=== PATIENT | male | born 1935 | race African-American/Black ===

== ENCOUNTER 2016-06-06 15:27 | Inpatient (IN) ==
[2016-06-06] MEDS ORDERED: PANTOPRAZOLE 40 MG VIAL IV STA (17:10)
[2016-06-06] MEDS ORDERED: SODIUM CHLORIDE 0.9% 500 ML IV STA (17:10)
[2016-06-06] MEDS ORDERED: ONDANSETRON 4 MG/2 ML VIAL IV STA (17:10)
--- NOTE | 2016-06-06 17:21 | Emergency Department Note ---
Aletha Ware [place], am scribing for, and in the presence of, Edd Clarke MD 17:21. Tricia Ware Charles R, MD, personally performed the services described in this documentation, ascribed by Geri Pompa in my presence, and it is both accurate and complete [id number] . Arrival - Arrival Chief Complaint: Non-Specific Stated Complaint: sent for blood tranfusion ED Nursing Triage Note: Pt sent from [facility] for low blood count. 6&21 H&H. Pt states he has been getting tired alot lately. Mode of Arrival: Ambulatory Limitations: No Limitations Source: Patient Time Seen by Provider: 06/06/16 16:30 - History of Present Illness HPI Narrative: This is a 80 y/o black male presenting to the ED from the [facility] for low blood count and Hematocrit and Hemoglobin levels of 6 and 21. Pt states he has been experiencing melena stool 3-4 weeks ago but has not experienced them recently. He states he takes Xarelto. Pt denies SOB, weakness, LAU, vision change , hematuria, abdominal pain, back pain. He had a scope done and revealed polyps which were removed. His PMHx is consistent with HTN and PVD. Consistency: constant Severity: moderate Allergies/Adverse Reactions: Allergies Allergy/AdvReac Type Severity Reaction Status Date / Time codeine Allergy UNRESPONSIV Verified 06/06/16 15:38 E Home Medications: Home Medications Medication Instructions Recorded Confirmed Type Unable To Obtain [Unable to Obtain] 06/06/16 06/06/16 History Review of System - Review of System 12 point system: reviewed and no additional remarkable complaints except as stated - Review of System Constitutional: Present: weakness (generalized ). Absent: chills, fever Eyes: Absent: vision change Head/Ears/Nose/Throat: Absent: nasal drainage Respiratory: Absent: cough, wheezing Cardiovascular: Absent: chest pain, dyspnea on exertion Gastrointestinal: Present: melena (3-4 weeks ago ). Absent: abdominal pain, nausea, vomiting, diarrhea Genitourinary male: Absent: dysuria Musculoskeletal: Absent: arm pain, back pain, leg pain, neck pain Skin: Absent: rash Neurological: Absent: headache, weakness, confusion, abnormal gait, vertigo Psychiatric: Absent: anxiety Endocrine: Absent: fatigue Hematological/Lymphatic: Absent: easy bleeding Allergic/Immunologic: Absent: facial swelling Medical,Surgical,& Family Hx - Medical History Cardio: History of: Hypertension, PVD - Social History Smoking Status: Former smoker Exam Vital Signs: Vital Signs Temperature 98.7 F 06/06/16 16:47 Pulse Rate 57 L 06/06/16 16:47 Respiratory Rate 18 06/06/16 16:48 Blood Pressure 143/59 06/06/16 16:47 O2 Sat by Pulse Oximetry 98 06/06/16 15:33 - General General appearance: alert, in no apparent distress - Head Head exam: Present: atraumatic, normocephalic - Eye Eye exam: Present: normal appearance, PERRL, EOMI - ENT ENT exam: Present: normal exam, normal oropharynx, mucous membranes moist, TM's normal bilaterally, normal external ear exam - Neck Neck exam: Present: normal inspection, full ROM, trachea midline. Absent: tenderness - Chest Chest inspection: Present: normal inspection, symmetric chest wall rise. Absent : tenderness - Respiratory Respiratory exam: Present: normal lung sounds bilaterally - Cardiovascular Cardiovascular exam: Present: regular rate, normal rhythm, normal heart sounds - Abdominal Exam Abdominal exam: Present: soft, normal bowel sounds. Absent: distention, tenderness, guarding - Rectal Exam Rectal exam: Present: heme (+) stool (faint ). Absent: normal inspection - Extremities Exam Extremities exam: Present: normal inspection, full ROM, normal capillary refill. Absent: tenderness, pedal edema, calf tenderness - Back Exam Back exam: Present: normal inspection, full ROM. Absent: tenderness - Neurological Exam Neurological exam: Present: alert, oriented X3, CN II-XII intact, normal gait, reflexes normal - Psychiatric Psychiatric exam: Present: normal affect, normal mood - Skin Skin exam: Present: warm, dry, intact, normal color. Absent: rash, diaphoresis Course - Consultations Consultation #1: Hospitalist will admit patient Time: 17:22 Disposition Clinical Impression: GI bleed, Acute blood loss anemia, History of DVT (deep vein thrombosis), Chronic anticoagulation Case discussed with: patient Disposition: Still a Patient Condition: Stable Time of Disposition: 17:25
[2016-06-06 17:41] LABS: Basophils % 0.3 % (0.0-0.8); Eosinophils # 0.1 10*3/uL (0.0-0.87); Hemoglobin 6.6 GM/DL (14.0-18.0); Immature Granulocytes % 0.3 %; Immature Granulocytes Absolute 0.01 #; Lymphocytes # 1.2 10*3/uL (1.4-4.0); Lymphocytes % 32.9 % (21.2-54.2); Mean Corpuscular Hemoglobin 25 PG (27-34); Mean Corpuscular Volume 83.7 FL (87-102); Mean Platelet Volume 10.7 FL (9.6-12.0); Monocytes # 0.5 10*3/uL (0.11-0.8); Neutrophils # 1.8 10*3/uL (1.4-7.4); Neutrophils % 49.5 % (38.7-73.9); Platelet Count 205 T/CUMM (130-400); Red Blood Count 2.63 MC/CUMM (3.8-5.5); Red Cell Distribution Width 17.2 % (9.3-17.3); White Blood Count 3.5 T/CUMM (4-12)
[2016-06-06] MEDS ORDERED: ONDANSETRON 4 MG/2 ML VIAL IV PRN (17:42)
[2016-06-06] MEDS ORDERED: ACETAMINOPHEN 325 MG TABLET PO PRN (17:42)
[2016-06-06] MEDS ORDERED: ZALEPLON 5 MG CAPSULE PO PRN (17:42)
[2016-06-06] MEDS ORDERED: SODIUM CHLORIDE 0.9% 250 ML IV PRN (17:47)
[2016-06-06 17:49] LABS: INR 1.2; PT Patient Result 13.1 SECS
--- NOTE | 2016-06-06 18:05 | XRay Report ---
XR abdomen complete w decub Indication: Abdominal pain. Abdomen 3 views: No small bowel dilatation. Increased stool and gas projects over the colon, without dilatation. No evidence of free air. No abnormal calcifications or masses. Impression: Constipation without obstruction. PROCEDURE INTERPRETED AT [facility] DEPARTMENT OF RADIOLOGY Final Report Signed by: Jose Navas M.D.
--- NOTE | 2016-06-06 18:06 | XRay Report ---
XR chest 1V portable Indication: Shortness of breath. Chest one view: The heart size and mediastinal contour are normal. The lungs and pleural spaces are clear. Bones are unremarkable. Impression: Negative chest. PROCEDURE INTERPRETED AT [facility] DEPARTMENT OF RADIOLOGY Final Report Signed by: Jose Navas M.D.
--- NOTE | 2016-06-06 18:14 | Hospitalist History & Physical ---
<Horacio Qiu - Last Filed: 06/06/16 18:06> Assessment and Plan - Time spent with patient Time spent with patient: Greater than 30 minutes (1) GI bleed Status: Acute Assessment and plan: Patient reports history of melena. There is a distinct smell of blood present in the room. Patient denies active bleeding. Will consult GI for possible EGD and C scope. Current Visit: Yes (2) Acute blood loss anemia Status: Acute Assessment and plan: H&H 6.6 and 22. Type and screen. Plan to transfuse 2 units packed red blood cells. Repeat CBC, posttransfusion H&H. Current Visit: Yes (3) Hypertension Status: Acute Assessment and plan: Well controlled, will continue home meds. Current Visit: Yes (4) History of DVT (deep vein thrombosis) Status: Acute Assessment and plan: Patient reports DVT diagnosed in August 2015. He has been on chronic anticoagulation with Xarelto. Hold anticoagulation for now. Current Visit: Yes (5) Chronic anticoagulation Status: Acute Current Visit: Yes History of Present Illness Chief complaint: Low H&H History of present illness: Mr. Mcknight is a 80 year old male with a past medical history significant for hypertension and DVT who presented to the ED today for further evaluation low blood count and H&H. Patient states that he went to his PCP at [facility] to have lab work drawn yesterday and was told to report back to the office today because his blood count was dangerously low. To lab at the PCPs office found his H&H to be 6 and 21, and the patient was instructed to report to the emergency room. On arrival, the patient is alert and in no acute distress. He denies any weakness, blurred vision, hemoptysis, hematemesis, melena, abdominal pain, pain with food intake. However, he does admit to noticing 2-3 dark tarry stools approximately 3-4 weeks ago. He also states that 4 days ago, while doing yard work, he began to feel fatigued. Otherwise, he reports no change in his health. Lab work in the ER reveals hemoglobin 6.7 and hematocrit of 22 WBC 3.5 RBC 2.63. The patient's legs are moderately edematous, more so in the right. This is suspicious for lymphadenopathy. He does take naproxen 500 daily and Xarelto every evening. He will be admitted to the [facility] medicine service for further evaluation and management. We will consult GI for workup and further recommendations. Home Medications Medication Instructions Recorded Confirmed Type Amlodipine Besylate 5 mg PO QAM 06/06/16 06/06/16 History Atorvastatin Calcium 80 mg PO QPM 06/06/16 06/06/16 History Carboxymethylcellulose Sodium 1 drop BOTH EYES Q2H PRN 06/06/16 06/06/16 History [Refresh Tears] Dorzolamide HCl [Dorzolamide 2% 1 drop BOTH EYES TID 06/06/16 06/06/16 History Oph Soln] Folic Acid Tab 1 mg PO QAM 06/06/16 06/06/16 History Fosinopril Sodium 10 mg PO QPM 06/06/16 06/06/16 History Meloxicam 15 mg PO QAM 06/06/16 06/06/16 History Methotrexate Tab 17.5 mg PO TH 06/06/16 06/06/16 History Niacin [Slo-Niacin] 250 mg PO QPM 06/06/16 06/06/16 History Omeprazole 20 mg PO QAM 06/06/16 06/06/16 History Oxybutynin Chloride 5 mg PO BID 06/06/16 06/06/16 History Rivaroxaban [Xarelto] 20 mg PO DAILY W/SUPPER 06/06/16 06/06/16 History Allergies Allergy/AdvReac Type Severity Reaction Status Date / Time codeine Allergy UNRESPONSIV Verified 06/06/16 15:38 E Medical,Surgical,& Family Hx - Medical History Cardio: History of: Hypertension, PVD - Surgical History Orthopedic Surgeries: Surgical HX of;: Orthopedic Surgery (Shaved right patella) - Social History Smoking Status: Former smoker Frequency of Alcohol Use: Frequently (Wine and cognac) Type of Drug Use: None Marital Status: Single Lives With:: Parent (Patient is his mother's primary caregiver) Functional capacity: independent ambulation - Constitutional Constitutional: Absent: chills, daytime sleepiness, fatigue, fever(s), headache( s), weakness - EENT Eyes: Absent: blurry vision, loss of vision Ears: Absent: decreased hearing, ear pain Nose, mouth and throat: Absent: headache(s), neck pain, sore throat - Cardiovascular Cardiovascular: Present: edema. Absent: chest pain at rest, claudication, dyspnea, radiating jaw, neck or arm pain, orthopnea, palpitations - Respiratory Respiratory: Absent: cough, dyspnea, hemoptysis, dyspnea on exertion, wheezing, snoring - Gastrointestinal Gastrointestinal: Present: change in bowel habits, melena. Absent: abdominal pain, coffee ground emesis, constipation, hematemesis, hematochezia, loose stools, nausea - Genitourinary Genitourinary: Absent: difficulty urinating, dysuria - Musculoskeletal Musculoskeletal: Absent: arthralgias, back pain - Neurological Neurological: Absent: abnormal gait, abnormal speech, confusion, dizziness, headache(s), numbness, syncope - Psychiatric Psychiatric: Absent: anxiety, depression - Endocrine Endocrine: Absent: cold intolerance, fatigue, heat intolerance - Hematologic/Lymphatic Hematologic/Lymphatic: Absent: easy bleeding, easy bruising Exam - Constitutional Vitals: Period Temp Pulse Resp BP Sys/Walker Pulse Ox Last 24 Hr 98.7 F-98.9 F 57-57 18-18 143-143/59-59 98 Exam: General appearance: normal weight, no acute distress - Head Head exam: Present: normocephalic, atraumatic - Eye Eye exam: Present: EOMI. Absent: conjunctival injection, nystagmus Pupils: Present: AHSAN, normal accommodation - ENT ENT exam: Present: normal exam, normal external ear exam - Neck Neck exam: Present: normal inspection. Absent: lymphadenopathy, tenderness, thyromegaly - Respiratory Respiratory exam: Present: clear to auscultation bilaterally. Absent: rales, rhonchi, wheezes - Cardiovascular Cardiovascular exam: Present: regular rate and rhythm. Absent: carotid bruit, gallop, rubs - GI/Abdominal GI/Abdominal exam: Present: normal bowel sounds. Absent: ascites, distended, mass - Extremities Exam Extremities exam: Present: normal inspection, normal capillary refill, edema in lower extremities bilaterally - Back Exam Back exam: Absent: CVA tenderness (L), CVA tenderness (R) - Neurological Exam Neurological exam: Present: alert, oriented X3 - Psychiatric Psychiatric exam: Present: normal affect, normal mood - Skin Skin exam: Present: normal color, warm, dry Results - Labs CBC & BMP: 06/06/16 17:19 Lab Results: I have reviewed the past 24 hour labs <Marie Matos - Last Filed: 06/06/16 19:53> Assessment and Plan (1) Acute blood loss anemia Status: Acute Assessment and plan: consult Dr Lynn, protonix 40 mg IV every 12 hours, Hold Current Visit: Yes (2) Chronic anticoagulation Status: Acute Assessment and plan: for dvt, hold xarelto Current Visit: Yes (3) History of DVT (deep vein thrombosis) Status: Acute Current Visit: Yes (4) Hypertension Status: Acute Current Visit: Yes History of Present Illness History of present illness: Mr. MCKNIGHT is a 80 year old male seen and examined. History and physical reviewed and edited. Medical,Surgical,& Family Hx - Family History Family History: Denies;: Family Diabetes, Family Heart Disease Exam - Constitutional Exam: extremities chronic lymphedema left worse than right Results - Labs CBC & BMP: 06/06/16 17:19 06/06/16 17:19 - Diagnostic Findings Procedure: Abdominal x-ray: report reviewed by me (constipation without obstruction ), Chest x-ray: report reviewed by me (negative )
[2016-06-06 18:22] LABS: Alanine Aminotransferase 21 U/L (16-61); Albumin 3.2 G/DL (3.4-5.0); Alkaline Phosphatase 71 U/L (45-117); Aspartate Amino Transferase 21 U/L (0-37); Bilirubin,Total < 0.39 MG/DL (0.2-1.0); Blood Urea Nitrogen 23 MG/DL (7-18); Calcium 8.5 MG/DL (8.5-10.1); Glucose 221 MG/DL (74-106); Magnesium 1.8 MG/DL (1.8-2.4); Osmolality,Calculated 293.1 MOS/KG (273-304); Potassium 4.4 MMOL/L (3.5-5.1); Sodium 142 MMOL/L (136-145); Total Protein 6.2 G/DL (6.4-8.3); Troponin I Only < 0.015 NG/ML (0.00-0.045)
[2016-06-06] MEDS ORDERED: PANTOPRAZOLE 40 MG VIAL IV ONE (19:34)
[2016-06-06] MEDS ORDERED: ONDANSETRON 4 MG/2 ML VIAL ONE (19:34)
[2016-06-06] MEDS ORDERED: POLYVINYL ALCOHOL 1.4% OPH SOLN 15 ML BOTTLE BOTH EYES PRN (19:50)
[2016-06-06] MEDS: DORZOLAMIDE 2% OPH SOLN 10 ML BOTTLE BOTH EYES SCH (23:56)
[2016-06-06] MEDS: ATORVASTATIN 80 MG TABLET PO SCH (23:56)
[2016-06-06] MEDS: PANTOPRAZOLE 40 MG VIAL IV SCH (23:57)
[2016-06-06] MEDS: SODIUM CHLORIDE 0.9% 1,000 ML IV SCH (23:57)
[2016-06-07 01:23] LABS: Basophils % 0.2 % (0.0-0.8); Eosinophils # 0.1 10*3/uL (0.0-0.87); Eosinophils % 1.7 % (0.00-10.9); Immature Granulocytes % 0.2 %; Immature Granulocytes Absolute 0.01 #; Lymphocytes # 1.1 10*3/uL (1.4-4.0); Mean Corpuscular HGB Conc 30.5 GM/DL (32-36); Mean Corpuscular Hemoglobin 25 PG (27-34); Mean Platelet Volume 10.8 FL (9.6-12.0); Monocytes # 0.5 10*3/uL (0.11-0.8); Neutrophils # 2.5 10*3/uL (1.4-7.4); Neutrophils % 58.9 % (38.7-73.9); Platelet Count 184 T/CUMM (130-400); Red Blood Count 2.44 MC/CUMM (3.8-5.5); White Blood Count 4.2 T/CUMM (4-12)
[2016-06-07 01:27] LABS: Hemoglobin 6.1 GM/DL (14.0-18.0)
[2016-06-07 01:51] LABS: Calcium 8.3 MG/DL (8.5-10.1); Osmolality,Calculated 295.1 MOS/KG (273-304); Potassium 4.3 MMOL/L (3.5-5.1)
[2016-06-07] MEDS: SODIUM CHLORIDE 0.9% 1,000 ML IV SCH ×2 (05:37→16:20)
[2016-06-07 06:59] LABS: Hematocrit 27.7 VOL% (42.0-52.0)
[2016-06-07 07:03] LABS: Hemoglobin 8.6 GM/DL (14.0-18.0)
[2016-06-07 08:00] LABS: Apearance,Urine CLEAR (Clear); Bilirubin,Urine Negative (Negative); Blood, Urine Negative (Negative); Glucose,Urine (UA) 50 mg/dL (Negative); Ketones,Urine Negative (Negative); Nitrite,Urine Negative (Negative); Protein,Urine Negative; RBC,Urine 1 /HPF (0-4); Urine Color Straw (Yellow); Urine Specific Gravity 1.011 (1.001-1.035); Urine Urobilinogen < 2.0 EU/DL (0.2-1.0); WBC,Urine <1 /HPF (0-6)
--- NOTE | 2016-06-07 08:25 | Ultrasound Report ---
Referring physician: Constanza Ashton MD Exam: Bilateral lower extremity venous ultrasound Date: June 07, 2016 Comparison: None Reason: History DVT, swelling of lower extremities Technique: Duplex scan of the bilateral lower extremity veins was performed using B-Mode/grayscale imaging and Doppler spectral analysis and color flow. Ultrasound images were captured and stored. Findings: There are areas of poor compression at the superficial femoral veins bilaterally, which is concerning for nonoccluding thrombus. The bilateral common femoral veins, saphenous veins and popliteal veins are patent. 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 Findings were discussed with the patient's nurse, Abida, on June 07, 2016 at 8:23 AM. PROCEDURE INTERPRETED AT [facility] DEPARTMENT OF RADIOLOGY Final Report Signed by: Dr. Hien Kelsey
[2016-06-07] MEDS: PANTOPRAZOLE 40 MG VIAL IV SCH ×2 (08:34→21:00)
[2016-06-07] MEDS: DORZOLAMIDE 2% OPH SOLN 10 ML BOTTLE BOTH EYES SCH ×3 (08:34→21:04)
[2016-06-07] MEDS: FOLIC ACID 1 MG TABLET PO SCH (08:35)
--- NOTE | 2016-06-07 09:30 | Gastrointestinal Consult Note ---
<Aysha Galvez - Last Filed: 06/07/16 09:27> Assessment and Plan (1) Acute blood loss anemia Status: Acute Assessment and plan: 06/07-report of melena 3 weeks ago with findings at routine visit of hemoglobin of 6. Hemoglobin improved at 8.6 following 2 units of packed red blood cells yesterday. MCV 82. Long-term history of NSAID use. Xarelto for history of DVTs currently held. BUN/creatinine ratio 16. Plan for diagnostic EGD tomorrow to further evaluate. Plan an addendum to follow by Dr. Burns per Current Visit: Yes History of Present Illness Chief complaint: Anemia History of present illness: Mr. MCKNIGHT is a 80 year old male who presented to the hospital after findings at a routine follow-up at the [place] [facility]. Patient states that he has been in his usual state of health. He states that about 3-4 weeks ago he had a couple of days of having dark tarry stools however this cleared up and did not return. He states he is felt fairly well until about a week ago when he was in his yard doing work and he noticed that he was more fatigued than usual. [facility] and on his blood work he was found to have a hemoglobin of 6. He was referred to our facility for further workup. Patient states that he has never been anemic before and denies any blood transfusions. He denies any history of peptic ulcer disease. He has had his prior endoscopies done through the [place] with the last known colonoscopy 3 years ago in [facility] with findings of polyps and told to return in 5 years. He denies any dysphagia or odynophagia. States that he does have acid reflux but this is controlled with his PPI. He reports that he does take naproxen 500 mg daily and has done this for 8-9 years. He was recently started on Mobic last week. He is noted to be on Xarelto for the past 2 years for prior DVTs to his lower extremities. He cannot recall who started him on the Xarelto. Bilateral Doppler ultrasounds showed nonoccluding thrombus to both superficial femoral veins with appearance of chronic nature. He denies any fever, chills, hematochezia. Denies any abdominal pain, nausea or vomiting. Denies any weight loss. Last dose of Xarelto taken was on yesterday. Home Medications Medication Instructions Recorded Confirmed Type Amlodipine Besylate 5 mg PO QAM 06/06/16 06/07/16 History Atorvastatin Calcium 80 mg PO QPM 06/06/16 06/07/16 History Carboxymethylcellulose Sodium 1 drop BOTH EYES Q2H PRN 06/06/16 06/07/16 History [Refresh Tears] Dorzolamide HCl [Dorzolamide 2% 1 drop BOTH EYES TID 06/06/16 06/07/16 History Oph Soln] Folic Acid Tab 1 mg PO QAM 06/06/16 06/07/16 History Fosinopril Sodium 10 mg PO QPM 06/06/16 06/07/16 History Meloxicam 15 mg PO QAM 06/06/16 06/07/16 History Methotrexate Tab 17.5 mg PO TH 06/06/16 06/07/16 History Niacin [Slo-Niacin] 250 mg PO QPM 06/06/16 06/07/16 History Omeprazole 20 mg PO QAM 06/06/16 06/07/16 History Oxybutynin Chloride 5 mg PO BID 06/06/16 06/07/16 History Rivaroxaban [Xarelto] 20 mg PO DAILY W/SUPPER 06/06/16 06/07/16 History Allergies Allergy/AdvReac Type Severity Reaction Status Date / Time codeine Allergy UNRESPONSIV Verified 06/07/16 00:19 E Medical,Surgical,& Family Hx - Medical History Cardio: History of: Hypertension, PVD HEENT: History of: Glaucoma (bilateral) Rheumatology: History of;: Rheumatoid Arthritis ((right pinky finger surgery)) Hematology: History of: Bleeding Problems (blood in stool x 3 wks ago) - Surgical History Thoracic Surgeries: Patient denies;: Organ Transplant, Lobectomy HEENT Surgeries: Surgical HX of: Eye Surgery Orthopedic Surgeries: Surgical HX of;: Orthopedic Surgery (Shaved right patella , Knee surgery) - Family History Family History: Reports;: Family Heart Disease (his dad had 5 heart attacks) Denies;: Family Diabetes - Social History Smoking Status: Former smoker Frequency of Alcohol Use: Rarely Type of Drug Use: None 12 point system: reviewed and no additional remarkable complaints except as stated - Constitutional Constitutional: Present: as per HPI - EENT Eyes: Present: as per HPI Ears: Present: as per HPI Nose, mouth and throat: Present: as per HPI - Cardiovascular Cardiovascular: Present: as per HPI - Respiratory Respiratory: Present: as per HPI - Gastrointestinal Gastrointestinal: Present: as per HPI, melena - Genitourinary Genitourinary: Present: as per HPI - Musculoskeletal Musculoskeletal: Present: as per HPI - Neurological Neurological: Present: as per HPI - Psychiatric Psychiatric: Present: as per HPI - Endocrine Endocrine: Present: as per HPI - Hematologic/Lymphatic Hematologic/Lymphatic: Present: as per HPI Exam - Constitutional Vitals: Period Temp Pulse Resp BP Sys/Walker Pulse Ox Last 24 Hr 97 F-97.9 F 59-84 18-20 122-134/59-78 97-98 General appearance: normal weight, no acute distress - Head Head exam: Present: normal inspection, normocephalic - Eye Eye exam: Present: other (Lids and conjunctive on). Absent: scleral icterus - ENT ENT exam: Present: normal exam, normal oropharynx - Neck Neck exam: Present: normal inspection - Respiratory Respiratory exam: Present: clear to auscultation bilaterally. Absent: rales, rhonchi, wheezes - Cardiovascular Cardiovascular exam: Present: regular rate and rhythm. Absent: diastolic murmur , JVD, systolic murmur - GI/Abdominal GI/Abdominal exam: Present: normal bowel sounds, soft. Absent: ascites, distended, mass, organomegaly, tenderness - Extremities Exam Extremities exam: Present: normal inspection, full ROM - Back Exam Back exam: Present: normal inspection - Neurological Exam Neurological exam: Present: alert, oriented X3 - Psychiatric Psychiatric exam: Present: normal affect, normal mood - Skin Skin exam: Present: normal color, warm, dry Results - Labs CBC & BMP: 06/07/16 06:29 06/07/16 01:05 Lab Results: I have reviewed the past 24 hour labs - Diagnostic Findings Procedure: Abdominal x-ray: report reviewed by me Quality Measures - Stroke Symptom Onset Unknown: No <Chris Burns - Last Filed: 06/07/16 18:41> History of Present Illness History of present illness: Mr. MCKNIGHT is a 80 year old male Exam - Constitutional Vitals: Period Temp Pulse Resp BP Sys/Walker Pulse Ox Last 24 Hr 97 F-98.5 F 56-84 18-20 122-143/43-78 92-98 Results - Labs CBC & BMP: 06/07/16 12:16 06/07/16 01:05
[2016-06-07 12:43] LABS: Hematocrit 26.8 VOL% (42.0-52.0); Hemoglobin 8.4 GM/DL (14.0-18.0)
--- NOTE | 2016-06-07 15:32 | Hospitalist Progress Note ---
Hospitalist: Subjective Interval history: Pt denies any abd pain, nausea or vomiting. Pt denies abd pain, lightheadedness or dizziness. No fever. He denies any current melena, or hematemesis. Exam - Constitutional Vitals: Period Temp Pulse Resp BP Sys/Walker Pulse Ox Last 24 Hr 97 F-98.5 F 56-84 18-20 122-143/43-78 95-98 Exam: A and O x 2, pale RRR no M CTAB nonlabored Soft, NT, ND, +BS Warm no c/c/e Results - Labs CBC & BMP: 06/07/16 12:16 06/07/16 01:05 - Impressions (1) GI bleed/ reported melena Status: Acute Assessment and plan: Patient reports history of melena. Pt has a recent history of NSAID use. GI following with plans for EGD and C scope. -PPI IV Current Visit: Yes (2) Acute blood loss anemia likely due to UGIB Status: Acute Assessment and plan: H&H 6.6 and 22 on admission. H/h had an appropriate response s/p transfusion. Repeat CBC, posttransfusion H&H. Current Visit: Yes (3) Essential Hypertension Status: Acute Assessment and plan: Well controlled, will continue home meds. Current Visit: Yes (4) History of DVT (deep vein thrombosis) Status: Acute Assessment and plan: Patient reports DVT diagnosed in August 2015. He has been on chronic anticoagulation with Xarelto. Hold anticoagulation for now. Current Visit: Yes (5) Chronic anticoagulation Status: Acute Current Visit: Yes D/W GI staff and pt. All questions answered. Dispo: pending GI workup Quality Measures - Stroke Symptom Onset Unknown: No
[2016-06-07] MEDS: ATORVASTATIN 80 MG TABLET PO SCH (21:02)
[2016-06-08 04:20] LABS: Basophils % 0.2 % (0.0-0.8); Eosinophils # 0.1 10*3/uL (0.0-0.87); Hematocrit 26.8 VOL% (42.0-52.0); Hemoglobin 8.4 GM/DL (14.0-18.0); Immature Granulocytes % 0.3 %; Immature Granulocytes Absolute 0.02 #; Lymphocytes # 1.4 10*3/uL (1.4-4.0); Lymphocytes % 23.4 % (21.2-54.2); Mean Corpuscular HGB Conc 31.3 GM/DL (32-36); Mean Corpuscular Hemoglobin 26 PG (27-34); Mean Corpuscular Volume 82.5 FL (87-102); Mean Platelet Volume 10.4 FL (9.6-12.0); Monocytes # 0.6 10*3/uL (0.11-0.8); Monocytes % 10.8 % (1.7-12.7); Neutrophils # 3.7 10*3/uL (1.4-7.4); Neutrophils % 63.3 % (38.7-73.9); Platelet Count 169 T/CUMM (130-400); Red Blood Count 3.25 MC/CUMM (3.8-5.5); Red Cell Distribution Width 15.9 % (9.3-17.3); White Blood Count 5.9 T/CUMM (4-12)
[2016-06-08 04:49] LABS: Calcium 8.4 MG/DL (8.5-10.1); Osmolality,Calculated 290.8 MOS/KG (273-304); Potassium 4.2 MMOL/L (3.5-5.1)
[2016-06-08] MEDS: FOLIC ACID 1 MG TABLET PO SCH (10:54)
[2016-06-08] MEDS ORDERED: BISACODYL 5 MG TABLET PO ONE (12:00)
[2016-06-08] MEDS: PANTOPRAZOLE 40 MG VIAL IV SCH ×2 (12:01→20:50)
[2016-06-08] MEDS: SODIUM CHLORIDE 0.9% 1,000 ML IV SCH (12:01)
[2016-06-08] MEDS ORDERED: LIDOCAINE 2% 5 ML VIAL ONE (13:25)
[2016-06-08] MEDS ORDERED: PROPOFOL 200 MG/20 ML VIAL IV ONE (13:25)
--- NOTE | 2016-06-08 13:35 | History and Physical Update ---
History and Physical Update - Physical Exam Mental Status: alert and oriented Heart: regular rate and rhythm Lung: clear to auscultation Abdomen: within normal limits Vitals: within normal limits
--- NOTE | 2016-06-08 13:39 | Operative Note ---
Date of procedure: 06/08/16 Pre-op diagnosis: Acute blood loss anemia with melena Procedure: EGD 80-year-old gentleman with acute GI blood loss with melena complicated by anticoagulation treatment. Now for upper endoscopy to further evaluate he does take frequent nonsteroidals. Informed symptoms obtained patient He was sedated with MAC anesthesia per anesthesia protocol. Patient placed in left lateral decubitus position the Olympus flexible video upper endoscope was inserted into the oral cavity under direct vision the esophagus intubated. Findings: Esophagus-normal esophageal mucosa proximal and midesophagus distal esophagus moderate hiatal hernia no significant esophagitis or stricture was seen. Stomach-normal insufflation normal mucosa to direct and retroflexed views of the body fundus cardia and antrum the stomach. Pylorus is normal Duodenum normal for the bulb and duodenum to the third portion of duodenum. The procedure terminated placed our procedure well. Postop diagnosis: 1. Gastroesophageal reflux disease with moderate hiatal hernia-continue PPI treatment and monitor. Limit nonsteroidals. 2. No clear evidence for anemia will plan colonoscopy on Saturday. Continue to hold his anticoagulants to permit polypectomy if needed. I will see on Saturday call coverage if needed over the weekend. Anesthesia: MAC Surgeon / Physician: Chris Burns Estimated blood loss: none Specimens: none sent Condition: stable Disposition: post procedure unit Results - Labs CBC & BMP: 06/08/16 02:51 06/08/16 02:51 Discharge Plan - Discharge Medications No Action Fosinopril Sodium 10 mg PO QPM Atorvastatin Calcium 80 mg PO QPM Oxybutynin Chloride 5 mg PO BID Amlodipine Besylate 5 mg PO QAM Omeprazole 20 mg PO QAM Folic Acid Tab 1 mg PO QAM Dorzolamide HCl [Dorzolamide 2% Oph Soln] 1 drop BOTH EYES TID Rivaroxaban [Xarelto] 20 mg PO DAILY W/SUPPER Carboxymethylcellulose Sodium [Refresh Tears] 1 drop BOTH EYES Q2H PRN PRN Reason: Dry Eyes Niacin [Slo-Niacin] 250 mg PO QPM Meloxicam 15 mg PO QAM Methotrexate Tab 17.5 mg PO TH - Follow Up or Referral - Forms/Instructions
--- NOTE | 2016-06-08 13:44 | Anesthesia ---
Anesthesia Post OP - Post Ansesthetic Evaluation Patient seen in post op: Yes Resp: within normal limits CV: within normal limits Mental: within normal limits Temp: within normal limits [id number]: within normal limits Nausea and Vomiting: within normal limits Pain: within normal limits
--- NOTE | 2016-06-08 16:45 | Hospitalist Progress Note ---
Hospitalist: Subjective Interval history: no further bleeding noted. No abd pain. Tolerating po. No cp or SOB. No palpitations. No nausea or vomiting. EGD was done and showed no stigmata of bleeding Exam - Constitutional Vitals: Period Temp Pulse Resp BP Sys/Walker Pulse Ox Last 24 Hr 97.8 F-98.4 F 48-75 14-20 131-164/52-86 94-100 Exam: A and O x 2, pale RRR no M CTAB nonlabored Soft, NT, ND, +BS Warm no c/c/e Results - Labs CBC & BMP: 06/08/16 02:51 06/08/16 02:51 - Impressions (1) GI bleed/ reported melena Status: Acute Assessment and plan: Patient reports history of melena. Pt has a recent history of NSAID use. EGD showed GERD with moderate hiatal hernia and C scope planned for 06/11 -Cont PPI Current Visit: Yes (2) Acute blood loss anemia likely due to UGIB Status: Acute Assessment and plan: H&H 6.6 and 22 on admission. H/h had an appropriate response s/p transfusion. Repeat CBC, posttransfusion H&H stable. Current Visit: Yes (3) Essential Hypertension Status: Acute Assessment and plan: Well controlled, will continue home meds. Current Visit: Yes (4) History of DVT (deep vein thrombosis) Status: Acute Assessment and plan: Patient reports DVT diagnosed in August 2015. He has been on chronic anticoagulation with Xarelto. Hold anticoagulation for now. Current Visit: Yes (5) Chronic anticoagulation Status: Acute Current Visit: Yes D/W pt. All questions answered. Dispo: pending GI workup Quality Measures - Stroke Symptom Onset Unknown: No
[2016-06-08] MEDS: DORZOLAMIDE 2% OPH SOLN 10 ML BOTTLE BOTH EYES SCH ×2 (17:15→20:49)
[2016-06-08] MEDS: ATORVASTATIN 80 MG TABLET PO SCH (20:49)
[2016-06-09 02:15] LABS: Basophils % 0.3 % (0.0-0.8); Eosinophils # 0.1 10*3/uL (0.0-0.87); Eosinophils % 1.8 % (0.00-10.9); Hematocrit 28.1 VOL% (42.0-52.0); Hemoglobin 8.5 GM/DL (14.0-18.0); Immature Granulocytes % 0.9 %; Immature Granulocytes Absolute 0.06 #; Lymphocytes # 1.1 10*3/uL (1.4-4.0); Lymphocytes % 16.5 % (21.2-54.2); Mean Corpuscular HGB Conc 30.2 GM/DL (32-36); Mean Corpuscular Hemoglobin 25 PG (27-34); Mean Corpuscular Volume 83.9 FL (87-102); Mean Platelet Volume 11.4 FL (9.6-12.0); Monocytes # 0.8 10*3/uL (0.11-0.8); Monocytes % 11.5 % (1.7-12.7); Neutrophils # 4.6 10*3/uL (1.4-7.4); Platelet Count 172 T/CUMM (130-400); Red Blood Count 3.35 MC/CUMM (3.8-5.5); White Blood Count 6.7 T/CUMM (4-12)
[2016-06-09 02:38] LABS: Calcium 8.4 MG/DL (8.5-10.1); Potassium 4.2 MMOL/L (3.5-5.1)
[2016-06-09] MEDS: SODIUM CHLORIDE 0.9% 1,000 ML IV SCH ×2 (03:10→09:20)
[2016-06-09] MEDS: PANTOPRAZOLE 40 MG VIAL IV SCH ×2 (09:19→20:48)
[2016-06-09] MEDS: DORZOLAMIDE 2% OPH SOLN 10 ML BOTTLE BOTH EYES SCH ×3 (09:20→20:51)
[2016-06-09] MEDS: FOLIC ACID 1 MG TABLET PO SCH (09:20)
--- NOTE | 2016-06-09 18:26 | Hospitalist Progress Note ---
Hospitalist: Subjective Interval history: Patient denies any bright red blood per rectum or melena or hematemesis. He denies any abdominal pain. No fevers chills. Tolerating clear diet. No chest pain or shortness of breath. No nausea or vomiting. No lightheadedness or dizziness. Exam - Constitutional Vitals: Period Temp Pulse Resp BP Sys/Walker Pulse Ox Last 24 Hr 97.5 F-98.6 F 50-63 17-20 127-165/53-65 95-100 Exam: A and O x 2, pale, lying in the hospital bed in no acute distress RRR no M CTAB nonlabored Soft, NT, ND, +BS Warm no c/c/e Results - Labs CBC & BMP: 06/09/16 01:45 06/09/16 01:45 - Impressions (1) suspected GI bleed/ reported melena Status: Acute Assessment and plan: Patient reports history of melena. Pt has a recent history of NSAID use. EGD showed GERD with moderate hiatal hernia and C scope planned for 06/11. If C scope is negative may need to consider an outpatient small bowel capsule study. -Cont PPI Current Visit: Yes (2) Acute blood loss anemia possibly due to GI bleed Status: Acute Assessment and plan: H&H 6.6 and 22 on admission. H/h had an appropriate response s/p transfusion with Hgb stable at 8. Repeat CBC, posttransfusion H&H stable. Current Visit: Yes (3) Essential Hypertension Status: Acute Assessment and plan: Well controlled, will continue home meds. Current Visit: Yes (4) History of DVT (deep vein thrombosis) Status: Acute Assessment and plan: Patient reports DVT diagnosed in August 2015. He has been on chronic anticoagulation with Xarelto. Hold anticoagulation for now due to concern for GI bleed. Current Visit: Yes (5) Chronic anticoagulation Status: Acute Current Visit: Yes I will be away several days. 1 of my associates will follow in my absence. D/W pt and nurse. All questions answered. Dispo: pending GI workup Quality Measures - Stroke Symptom Onset Unknown: No
[2016-06-09] MEDS: ATORVASTATIN 80 MG TABLET PO SCH (20:47)
[2016-06-10] MEDS: SODIUM CHLORIDE 0.9% 1,000 ML IV SCH ×2 (00:48→10:50)
[2016-06-10] MEDS: FOLIC ACID 1 MG TABLET PO SCH (09:08)
[2016-06-10] MEDS: PANTOPRAZOLE 40 MG VIAL IV SCH (09:08)
[2016-06-10] MEDS: DORZOLAMIDE 2% OPH SOLN 10 ML BOTTLE BOTH EYES SCH ×3 (09:20→20:17)
--- NOTE | 2016-06-10 11:37 | Hospitalist Progress Note ---
Assessment and Plan - Time spent with patient Time spent with patient: Less than 30 minutes (1) GI bleed Status: Acute Assessment and plan: (1) suspected GI bleed/ reported melena Assessment and plan: Patient reports history of melena. Pt has a recent history of NSAID use. EGD showed GERD with moderate hiatal hernia and C scope planned for 06/11. If C scope is negative may need to consider an outpatient small bowel capsule study. -Cont PPI (2) Acute blood loss anemia possibly due to GI bleed Assessment and plan: H&H 6.6 and 22 on admission. H/h had an appropriate response s/p transfusion with Hgb stable at 8. Repeat CBC, posttransfusion H&H stable. (3) Essential Hypertension Assessment and plan: Well controlled, will continue home meds. (4) History of DVT (deep vein thrombosis) Status: Acute Assessment and plan: Patient reports DVT diagnosed in August 2015. He has been on chronic anticoagulation with Xarelto. Hold anticoagulation for now due to concern for GI bleed. Given duration of therapy can consider stop AC alltogether on DC Dispo: pending GI workup Current Visit: Yes (2) Acute blood loss anemia Status: Acute Current Visit: Yes (3) Chronic anticoagulation Status: Acute Current Visit: Yes (4) Hypertension Status: Acute Current Visit: Yes Hospitalist: Subjective Interval history: pt seen and examined in good spiritis doing well awaiting GI workup as per Dr Lynn in AM no further evidence of bleeding Exam - Constitutional Vitals: Period Temp Pulse Resp BP Sys/Walker Pulse Ox Last 24 Hr 97.3 F-98.3 F 50-59 18-20 139-165/60-77 94-98 General appearance: normal weight, no acute distress - Head Head exam: Present: normal inspection, normocephalic, atraumatic - Eye Eye exam: Present: EOMI. Absent: conjunctival injection, nystagmus Pupils: Present: AHSAN - ENT ENT exam: Present: normal exam - Neck Neck exam: Present: normal inspection. Absent: lymphadenopathy - Respiratory Respiratory exam: Present: clear to auscultation bilaterally. Absent: rales, rhonchi, stridor, wheezes - Cardiovascular Cardiovascular exam: Present: regular rate and rhythm. Absent: bradycardia, carotid bruit, irregular rhythm, JVD - GI/Abdominal GI/Abdominal exam: Present: normal bowel sounds. Absent: ascites, distended, firm, guarding - Extremities Exam Extremities exam: Present: normal inspection - Back Exam Back exam: Present: normal inspection. Absent: CVA tenderness (L), CVA tenderness (R) - Neurological Exam Neurological exam: Present: alert, oriented X3, CN II-XII intact - Psychiatric Psychiatric exam: Present: normal affect, normal mood - Skin Skin exam: Present: normal color, warm Results - Labs CBC & BMP: 06/09/16 01:45 06/09/16 01:45 Lab Results: I have reviewed the past 24 hour labs Quality Measures - Stroke Symptom Onset Unknown: No
[2016-06-10] MEDS ORDERED: BISACODYL 5 MG TABLET PO ONE (14:00)
[2016-06-10] MEDS ORDERED: POLYETHYLENE GLYCOL POWDER 255 GM BOTTLE PO ONE (18:00)
[2016-06-10] MEDS: PANTOPRAZOLE 40 MG TABLET PO SCH (20:16)
[2016-06-10] MEDS: ATORVASTATIN 80 MG TABLET PO SCH (20:16)
[2016-06-11 05:17] LABS: Basophils % 0.2 % (0.0-0.8); Eosinophils # 0.1 10*3/uL (0.0-0.87); Eosinophils % 2.1 % (0.00-10.9); Hematocrit 29.9 VOL% (42.0-52.0); Hemoglobin 9.2 GM/DL (14.0-18.0); Immature Granulocytes % 0.4 %; Immature Granulocytes Absolute 0.02 #; Lymphocytes # 0.9 10*3/uL (1.4-4.0); Lymphocytes % 15.8 % (21.2-54.2); Mean Corpuscular HGB Conc 30.8 GM/DL (32-36); Mean Corpuscular Hemoglobin 26 PG (27-34); Mean Corpuscular Volume 83.1 FL (87-102); Mean Platelet Volume 11.1 FL (9.6-12.0); Monocytes # 0.6 10*3/uL (0.11-0.8); Monocytes % 11.1 % (1.7-12.7); Neutrophils % 70.4 % (38.7-73.9); Platelet Count 183 T/CUMM (130-400); White Blood Count 5.7 T/CUMM (4-12)
[2016-06-11 05:48] LABS: Calcium 8.7 MG/DL (8.5-10.1); Magnesium 1.9 MG/DL (1.8-2.4); Osmolality,Calculated 284.1 MOS/KG (273-304)
[2016-06-11] MEDS ORDERED: PROPOFOL 200 MG/20 ML VIAL IV ONE (09:59)
[2016-06-11] MEDS ORDERED: LIDOCAINE 100 MG/5 ML SYRINGE ONE (09:59)
--- NOTE | 2016-06-11 10:18 | Operative Note ---
Date of procedure: 06/11/16 Pre-op diagnosis: Iron deficiency anemia Procedure: Colonoscopy 80-year-old gentleman with iron deficiency anemia now for colonoscopy to further evaluate. Informed consent was obtained for the patient He was sedated with MAC anesthesia per anesthesia protocol. Withdrawal time 7-1/2 minutes Prep opaque fluid easily aspirated. Patient was placed in left lateral decubitus position digital exam revealed no rectal masses normal prostate. The Olympus flexible video colonoscope [place] the anal canal under direct vision the scope was advanced to the cecum. Findings: Cecum-normal identified the ileocecal valve and appendiceal orifice. Terminal ileum-normal Ascending colon-normal Transverse colon-normal Descending colon-diverticulosis otherwise normal Sigmoid colon-diverticulosis otherwise normal Rectum-normal to direct retroflexed views. The procedure was terminated placed our procedure well his discharge recovery in good condition. Postop diagnosis: 1. Diverticulosis coli-maintain adequate fiber and fluid intake 2. No source for iron deficiency anemia identified. Check small bowel series in a.m. Anesthesia: MAC Surgeon / Physician: Chris Burns Estimated blood loss: none Specimens: none sent Condition: stable Disposition: post procedure unit Results - Labs CBC & BMP: 06/11/16 04:27 06/11/16 04:27 Discharge Plan - Discharge Medications No Action Fosinopril Sodium 10 mg PO QPM Atorvastatin Calcium 80 mg PO QPM Oxybutynin Chloride 5 mg PO BID Amlodipine Besylate 5 mg PO QAM Omeprazole 20 mg PO QAM Folic Acid Tab 1 mg PO QAM Dorzolamide HCl [Dorzolamide 2% Oph Soln] 1 drop BOTH EYES TID Rivaroxaban [Xarelto] 20 mg PO DAILY W/SUPPER Carboxymethylcellulose Sodium [Refresh Tears] 1 drop BOTH EYES Q2H PRN PRN Reason: Dry Eyes Niacin [Slo-Niacin] 250 mg PO QPM Meloxicam 15 mg PO QAM Methotrexate Tab 17.5 mg PO TH - Follow Up or Referral - Forms/Instructions
--- NOTE | 2016-06-11 10:55 | Anesthesia ---
Anesthesia Post OP - Post Ansesthetic Evaluation Patient seen in post op: Yes Resp: within normal limits CV: within normal limits Mental: within normal limits Temp: within normal limits Ckdo-Fd-Hkeyvzlen: within normal limits Nausea and Vomiting: within normal limits Pain: within normal limits
[2016-06-11] MEDS: DORZOLAMIDE 2% OPH SOLN 10 ML BOTTLE BOTH EYES SCH ×3 (11:36→20:24)
[2016-06-11] MEDS: FOLIC ACID 1 MG TABLET PO SCH (11:36)
[2016-06-11] MEDS: PANTOPRAZOLE 40 MG TABLET PO SCH ×2 (11:36→20:23)
--- NOTE | 2016-06-11 13:05 | Hospitalist Progress Note ---
Assessment and Plan (1) Acute blood loss anemia Status: Acute Assessment and plan: Impression: 1. Possible acute blood loss anemia 2. Rheumatoid arthritis 3. Hypertension Plan: GI has recommended a small bowel x-ray. This has been scheduled to be done tomorrow. If it is normal, I think he can go home afterward. This note was completed using [employer] voice recognition software. There may be correctional supply supervisor errors as a result. Current Visit: Yes Hospitalist: Subjective Interval history: Follow-up GI bleed and iron deficiency anemia. The patient has undergone colonoscopy, with no significant findings. He wonders if his anemia might be due to the long-term use of methotrexate for rheumatoid arthritis. He says that he has been on this for many years. He been on prednisone in the past, but has not been on it for a while. He feels fine. He has not had any bleeding as far as he can tell. He says that his rheumatoid arthritis is "in remission" with the methotrexate. Exam - Constitutional Vitals: Period Temp Pulse Resp BP Sys/Walker Pulse Ox Last 24 Hr 97.5 F-99.0 F 46-80 14-20 108-173/51-153 93-100 Vital signs are normal. Heart is regular with no murmur or gallop. Lungs are clear with no rales or wheezes. Abdomen is soft without mass or tenderness. Results - Labs CBC & BMP: 06/11/16 04:27 06/11/16 04:27 Lab Results: I have reviewed the past 24 hour labs Quality Measures - Stroke Symptom Onset Unknown: No
[2016-06-11] MEDS: SODIUM CHLORIDE 0.9% 1,000 ML IV SCH (14:10)
[2016-06-11] MEDS: ATORVASTATIN 80 MG TABLET PO SCH (20:23)
[2016-06-12] MEDS: DORZOLAMIDE 2% OPH SOLN 10 ML BOTTLE BOTH EYES SCH (09:20)
[2016-06-12] MEDS: PANTOPRAZOLE 40 MG TABLET PO SCH (09:21)
[2016-06-12] MEDS: FOLIC ACID 1 MG TABLET PO SCH (09:21)
[2016-06-12 09:38] VITALS: BP 139/63
--- NOTE | 2016-06-12 09:56 | Gastrointestinal Progress Note ---
<Aysha Galvez - Last Filed: 06/12/16 09:54> Assessment and Plan (1) Acute blood loss anemia Status: Acute Assessment and plan: 06/12-Small bowel series pending today. Colonoscopy findings noted. Hgb stable at 9.2. Plan and addendum to follow by Dr Burns. 06/07-report of melena 3 weeks ago with findings at routine visit of hemoglobin of 6. Hemoglobin improved at 8.6 following 2 units of packed red blood cells yesterday. MCV 82. Long-term history of NSAID use. Xarelto for history of DVTs currently held. BUN/creatinine ratio 16. Plan for diagnostic EGD tomorrow to further evaluate. Plan an addendum to follow by Dr. Burns per Current Visit: Yes Gastroenterology - PN: Subj Interval history: CC: Anemia Pt is seen awake and alert lying in bed. States he is feeling well today. He is for a small bowel series this morning. He denies any overt bleeding however states he has not had a bowel movement since his colon prep. Colonoscopy report noted for no findings of source of anemia and diverticulosis. His hemoglobin is stable at 9.2. Abdomen is soft, nontender. ROS: Denies SOB or chest pain Exam (Progress Note) - Constitutional Vitals: Period Temp Pulse Resp BP Sys/Walker Pulse Ox Last 24 Hr 96.7 F-99.2 F 56-76 14-20 108-151/51-66 95-100 General appearance: normal weight, no acute distress - Head Head exam: Present: normal inspection, normocephalic - Eye Eye exam: Present: other (lids and conjunctiva unremarkable). Absent: scleral icterus - ENT ENT exam: Present: normal exam, normal oropharynx - Neck Neck exam: Present: normal inspection - Respiratory Respiratory exam: Present: clear to auscultation bilaterally. Absent: rales, rhonchi, wheezes - Cardiovascular Cardiovascular exam: Present: regular rate and rhythm. Absent: diastolic murmur , JVD, systolic murmur - GI/Abdominal GI/Abdominal exam: Present: normal bowel sounds, soft. Absent: ascites, distended, mass, organomegaly, tenderness - Extremities Exam Extremities exam: Present: normal inspection, full ROM - Back Exam Back exam: Present: normal inspection - Neurological Exam Neurological exam: Present: alert, oriented X3 - Psychiatric Psychiatric exam: Present: normal affect, normal mood - Skin Skin exam: Present: normal color, warm Results - Labs CBC & BMP: 06/11/16 04:27 06/11/16 04:27 Lab Results: I have reviewed the past 24 hour labs <Chris Burns - Last Filed: 06/12/16 11:09> Exam (Progress Note) - Constitutional Vitals: Period Temp Pulse Resp BP Sys/Walker Pulse Ox Last 24 Hr 96.7 F-99.2 F 56-76 18-20 133-151/62-66 95-99 Results - Labs CBC & BMP: 06/11/16 04:27 06/11/16 04:27
[2016-06-12] MEDS ORDERED: FERROUS SULFATE 325 MG TABLET PO SCH (12:30)
--- NOTE | 2016-06-12 13:19 | Fluoroscopy Report ---
Small bowel follow-through Indication: Iron deficiency anemia Findings: Multiple small diverticula are present along the terminal ileum. The mucosal pattern of the jejunum and ileum appear within normal limits. No mass effect or mass is identified on this study. Fluoroscopy time was 34 seconds Impression: Multiple small diverticula seen along the terminal ileum. No other abnormality is identified. PROCEDURE INTERPRETED AT [facility] DEPARTMENT OF RADIOLOGY Final Report Signed by: Dr. Sumeet Castaneda
--- NOTE | 2016-06-12 13:38 | Discharge Summary ---
Hospital Course - Hospital Course Hospital Course: Discharge diagnosis: Acute blood loss anemia, source not known Rheumatoid arthritis, on methotrexate DVT, on Xarelto The patient presented to the hospital with a GI bleed. He was transfused, and had an appropriate response. GI saw him. Colonoscopy was negative. He underwent a small bowel x-ray. This showed a few diverticula in the ileum, but was otherwise fairly normal. The patient has not had any further drop in his hemoglobin. He receives his care at the [facility], and is scheduled to see them in about 2 or 3 weeks. Medication reconciliation has been done. Regular diet. Activity as tolerated. This note was completed using [employer] voice recognition software. There may be hydrogenation operator errors as a result. Diagnosis - Discharge Diagnosis (1) Acute blood loss anemia Status: Acute Discharge Plan - Discharge Data Disposition: Disch To Home/Self Care Condition at Discharge: Stable Discharge Diet: advance to your usual diet Activity: resume usual activities as tolerated Hygiene: no restrictions Weight Bearing at Discharge: full weight bearing Driving: no restrictions - Discharge Medications New Ferrous Sulfate Tab [Feosol Original Tab] 325 mg PO DAILY #30 tablet Continue Fosinopril Sodium 10 mg PO QPM Atorvastatin Calcium 80 mg PO QPM Oxybutynin Chloride 5 mg PO BID Amlodipine Besylate 5 mg PO QAM Omeprazole 20 mg PO QAM Folic Acid Tab 1 mg PO QAM Dorzolamide HCl [Dorzolamide 2% Oph Soln] 1 drop BOTH EYES TID Rivaroxaban [Xarelto] 20 mg PO DAILY W/SUPPER Carboxymethylcellulose Sodium [Refresh Tears] 1 drop BOTH EYES Q2H PRN PRN Reason: Dry Eyes Niacin [Slo-Niacin] 250 mg PO QPM Meloxicam 15 mg PO QAM Methotrexate Tab 17.5 mg PO TH - Follow Up or Referral - Forms/Instructions Exam - Constitutional Vitals: Period Temp Pulse Resp BP Sys/Walker Pulse Ox Last 24 Hr 96.7 F-99.2 F 56-76 20-20 133-148/62-64 95-97 He is afebrile. Her pressure is normal. Heart is regular with no murmur. Lungs are clear. Discharge Results Procedures and tests throughout hospitalization: Pending Orders 06/07/16 00:30 Occult Blood, Stool Stat DS: Provider Date of admission: 06/06/16 17:28 Primary care physician: . No PCP Attending physician on admission: Constanza Ashton MD Consults: 06/06/16 17:42 Consult to Physician [CONS] Routine Comment: GI bleed-consult changed to steve by [employer] Consulting Provider: Chris Burns Consulting Provider Notified: Yes When should Consulting Provider be notified: Now Consult to Specialist Group: Gastroenterology When should Consulting Provider be notified: Now Person Notified: OLIVA Date Notified: 06/07/16 Time Notified: 10:38 Discharging clinician: Federico Tineo MD Expected date of discharge: 06/12/16
== END 2016-06-12 13:55 | disposition home or self-care (01) | DRG 378 ==
LOC: N.ED 15:27 → N.EDINP 17:28 → SUATTDRO 17:28 → N.EDINP 20:05 → N.4E 21:49
PROVIDERS: ADMIT Pediatrics; ATTEND Internal Medicine Geriatric Medicine